=== PATIENT | female | born 1975 | race Caucasian/White ===

== ENCOUNTER 2020-10-26 21:48 | Emergency (ER) | payer SELFPAY ==
[~2020-10-26] VITALS: Ht 172.7 cm; Wt 163.3 kg
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
--- NOTE | 2020-10-26 22:35 | NUR ---
TECH AT BEDSIDE FOR XRAY
[2020-10-26] MEDS ORDERED: TRAMADOL HCL 50 MG TABLET ONE (22:51)
[2020-10-26] MEDS ORDERED: TRAMADOL HCL 50 MG TABLET PO ONE (23:00)
[2020-10-26] MEDS ORDERED: ACET-2605 PO (23:26)
[2020-10-26] MEDS ORDERED: CYCL10TA9 PO (23:26)
--- NOTE | 2020-10-26 23:50 | NUR ---
Patient discharged to home in stable condition. Written and verbal after care instructions given. Patient verbalizes understanding of instruction.
[2020-10-27 00:08] VITALS: BP 159/98
== END 2020-10-27 00:08 | disposition home or self-care (01) ==
LOC: ER 21:55
DX: S16.1XXA Strain of muscle, fascia and tendon at neck level, initial encounter (principal); M25.511 Pain in right shoulder; R07.89 Other chest pain; I10 Essential (primary) hypertension; Z79.899 Other long term (current) drug therapy; V49.49XA Driver injured in collision with other motor vehicles in traffic accident, initial encounter; Y93.89 Activity, other specified; Y92.413 State road as the place of occurrence of the external cause; Y99.8 Other external cause status
CPT/HCPCS: 71045-TC; 73030-TC

== ENCOUNTER 2025-09-02 21:54 | Inpatient (IN) | payer MEDICARE, OTHER ==
[~2025-09-02] VITALS: Ht 165.1 cm; Wt 108.9 kg
[~2025-09-02 21:54] MED LIST: ACET-2605 PO; CYCL10TA24 PO
[2025-09-02] MEDS ORDERED: ACET325C7 PO (22:40)
[2025-09-02] MEDS ORDERED: IPRA3AMP22 IH (22:40)
[2025-09-02] MEDS ORDERED: ALBU0.633 NEB (22:40)
[2025-09-02] MEDS ORDERED: DIPH25TA25 GT (22:40)
[2025-09-02] MEDS ORDERED: AMLO-212 GT (22:40)
[2025-09-02] MEDS ORDERED: DOCU100C36 GT (22:40)
[2025-09-02] MEDS ORDERED: ACET-868 GT (22:40)
[2025-09-02] MEDS ORDERED: ARGI1POW13 GT (22:40)
[2025-09-02] MEDS ORDERED: BISA10SU61 RC (22:40)
[2025-09-02] MEDS ORDERED: ATOR40TA GT (22:40)
[2025-09-02] MEDS ORDERED: CYAN10006 IM (22:40)
[2025-09-02 22:47] LABS: PLATELET COUNT (AUTO) 327 K/uL (150-450); RED CELL DISTRIBUTION WIDTH 20.7 % (11.5-15.0); WHITE BLOOD COUNT (AUTO) 5.4 K/uL (4.3-11.0)
[2025-09-02] MEDS ORDERED: LABE300T80 GT (22:49)
[2025-09-02] MEDS ORDERED: [UNRECOGNIZED DRUG - CODE] PO (22:49)
[2025-09-02] MEDS ORDERED: AMIN30LI2 GT (22:49)
[2025-09-02] MEDS ORDERED: LEVE500S9 GT (22:49)
[2025-09-02] MEDS ORDERED: ESOM40CA GT (22:49)
[2025-09-02 22:51] LABS: INR 1.08 (0.91-1.10)
[2025-09-02 22:52] LABS: ASPARTATE AMINOTRANSFERASE 9 U/L (15-37); CALCIUM, SERUM 8.3 mg/dL (8.5-10.1); CREATININE 1.1 mg/dL (0.6-1.3); RED BLOOD CELL COUNT(AUTO) 1.93 MIL/uL (4.0-5.2); SODIUM SERUM 145 mmol/L (136-145); TOTAL PROTEIN, SERUM 6.8 g/dL (6.4-8.2); UREA NITROGEN, BLOOD 10 mg/dL (7-18)
[2025-09-02 23:35] LABS: OCCULT BLOOD STOOL POSITIVE (NEGATIVE)
[2025-09-03] VITALS (12 sets, daily range): BP systolic 102–142; BP diastolic 63–82; TEMP 97.2–98.6; O2SAT 98–100
[2025-09-03] MEDS ORDERED: CT SWABBABLE VALVE TRANS SET 1 EA INFUS.SET MC ONE (00:01)
[2025-09-03] MEDS ORDERED: IV NS 0.9% 250 ML IV ONE (00:01)
[2025-09-03] MEDS ORDERED: IOHEXOL-300 100 ML VIAL IV ONE (00:01)
[2025-09-03 00:20] LABS: EOSINOPHILS % (MANUAL) 4 % (0-4); LYMPHOCYTES % (MANUAL) 26 % (16-48); MONOCYTES % (MANUAL) 11 % (0-11.0); NEUTROPHILS % (MANUAL) 59 (42-76); PLATELET ESTIMATE ADEQUATE
[2025-09-03] MEDS ORDERED: IV D5/ 0.9% NACL 1,000 ML IV PRN (00:30)
[2025-09-03] MEDS ORDERED: Z GUARD REMEDY 4 OZ OINT TP PRN (00:30)
[2025-09-03] MEDS ORDERED: ONDANSETRON HCL/PF 4 MG/2 ML VIAL IVP PRN (00:30)
[2025-09-03] MEDS ORDERED: PANTOPRAZOLE 80 MG in IV NS 0.9% 500 ML IV PRN (00:30)
[2025-09-03] MEDS ORDERED: MORPHINE SULFATE INJ 2 MG/ML DISP.SYRIN ONE (03:22)
[2025-09-03] MEDS: MORPHINE SULFATE INJ 2 MG/ML DISP.SYRIN IV PRN (03:26)
[2025-09-03] MEDS ORDERED: CHLO473M5 PO (08:37)
[2025-09-03] MEDS ORDERED: NA P133E RC (08:37)
[2025-09-03] MEDS ORDERED: MAGN400O6 GT (08:37)
[2025-09-03] MEDS ORDERED: FOLI0.4T6 GT (08:37)
[2025-09-03] MEDS ORDERED: [UNRECOGNIZED DRUG - CODE] GT (08:37)
[2025-09-03] MEDS ORDERED: CYAN500T15 GT (08:37)
[2025-09-03] MEDS ORDERED: ACET-73 GT (08:37)
[2025-09-03] MEDS ORDERED: COLL30OI TP (08:37)
[2025-09-03] MEDS ORDERED: ESOM40SU GT (08:37)
[2025-09-03] MEDS ORDERED: LACT-96 GT (08:37)
[2025-09-03] MEDS ORDERED: FERR325T24 GT (08:37)
[2025-09-03] MEDS ORDERED: ALBUTEROL FS 2.5 MG/3 ML VIAL.NEB NEB PRN (11:30)
[2025-09-03] MEDS ORDERED: JEVITY 1.5 CAL LIQUID 1,000 ML BOTTLE GT SCH (11:30)
[2025-09-03] MEDS ORDERED: hydrALAZINE HCL IV 20 MG VIAL IV PRN (11:30)
[2025-09-03] MEDS ORDERED: diphenhydrAMINE HCL ELIX 25 MG/10 ML UDC GT PRN (12:00)
[2025-09-03] MEDS: IPRATROPIUM NEB FS 0.5 MG/2.5 ML AMPUL.NEB NEB SCH (13:30)
[2025-09-03] MEDS: ALBUTEROL FS 2.5 MG/3 ML VIAL.NEB NEB SCH (13:30)
[2025-09-03] MEDS: PANTOPRAZOLE 40 MG VIAL IV SCH (16:02)
[2025-09-03] MEDS: LABETALOL HCL (100MG) 100 MG TABLET GT SCH (17:00)
[2025-09-03] MEDS: LEVETIRACETAM SOL (5 ML) 100 MG/ML UDC GT SCH (17:00)
[2025-09-03] MEDS: AMLODIPINE BESYLATE 5 MG TABLET GT SCH (17:00)
[2025-09-03] MEDS: DOCUSATE SODIUM LIQ 100 MG/10 ML UDC PO SCH (17:00)
[2025-09-03] MEDS: CHLORHEXIDINE GLUCONATE 15 ML UDC MM SCH (17:16)
[2025-09-03] MEDS: ATORVASTATIN 40 MG TABLET GT SCH (22:00)
[2025-09-04] VITALS (25 sets, daily range): BP systolic 100–150; BP diastolic 48–88; TEMP 98.1–99; O2SAT 98–100
[2025-09-04 02:15] LABS: PLATELET COUNT (AUTO) 305 K/uL (150-450); RED BLOOD CELL COUNT(AUTO) 2.49 MIL/uL (4.0-5.2); RED CELL DISTRIBUTION WIDTH 20.4 % (11.5-15.0); WHITE BLOOD COUNT (AUTO) 5.2 K/uL (4.3-11.0)
[2025-09-04 02:27] LABS: CALCIUM, SERUM 8.4 mg/dL (8.5-10.1); CREATININE 1.1 mg/dL (0.6-1.3); PHOSPHORUS 3.6 mg/dL (2.5-4.9); SODIUM SERUM 146.0 mmol/L (136-145); UREA NITROGEN, BLOOD 12.0 mg/dL (7-18)
[2025-09-04 03:17] LABS: LYMPHOCYTES % (MANUAL) 29 % (16-48); MONOCYTES % (MANUAL) 9 % (0-11.0); NEUTROPHILS % (MANUAL) 62 (42-76); PLATELET ESTIMATE ADEQUATE
[2025-09-04] MEDS: IV D5/0.45 NACL 1,000 ML IV PRN (07:03)
[2025-09-04] MEDS: FERROUS SULFATE (325 MG) 325 MG/TAB TABLET GT SCH (09:00)
[2025-09-04] MEDS: POLYETHYLENE GLYCOL 3350 17 GM POWD.PACK PO SCH (09:00)
[2025-09-04] MEDS: FOLIC ACID 1 MG TABLET GT SCH (09:00)
[2025-09-04] MEDS: THERAHONEY GEL 1.5 OZ TUBE TP SCH (16:40)
[2025-09-05] VITALS (25 sets, daily range): BP systolic 126–150; BP diastolic 74–98; TEMP 97.9–99.3; O2SAT 97–100
[2025-09-05] MEDS: FUROSEMIDE 20 MG/2 ML VIAL IV PRN (03:11)
[2025-09-05 06:43] LABS: PLATELET COUNT (AUTO) 290 K/uL (150-450); RED BLOOD CELL COUNT(AUTO) 3.14 MIL/uL (4.0-5.2); RED CELL DISTRIBUTION WIDTH 20.5 % (11.5-15.0); WHITE BLOOD COUNT (AUTO) 5.3 K/uL (4.3-11.0)
[2025-09-05 07:10] LABS: CALCIUM, SERUM 8.8 mg/dL (8.5-10.1); CREATININE 1.2 mg/dL (0.6-1.3); SODIUM SERUM 144.0 mmol/L (136-145); UREA NITROGEN, BLOOD 11.0 mg/dL (7-18)
[2025-09-05 11:09] LABS: PREGNANCY TEST URINE QUAL NEGATIVE (NEGATIVE)
[2025-09-05] MEDS: POTASSIUM CL. PREMIX PERIPHER. 50 ML IV SCH (12:30)
[2025-09-05] MEDS: JEVITY 1.2 CAL 1,000 ML BOTTLE GT PRN (14:17)
[2025-09-05] MEDS ORDERED: JEVITY 1.2 CAL 1,000 ML BOTTLE GT PRN (14:30)
[2025-09-05] MEDS: ACETAMINOPHEN 325 MG TABLET PO PRN (21:34)
[2025-09-06] VITALS (13 sets, daily range): BP systolic 131–145; BP diastolic 76–94; TEMP 97.9–98.1; O2SAT 98–100
[2025-09-06 06:37] LABS: PLATELET COUNT (AUTO) 261 K/uL (150-450); RED BLOOD CELL COUNT(AUTO) 3.32 MIL/uL (4.0-5.2); RED CELL DISTRIBUTION WIDTH 20.0 % (11.5-15.0); WHITE BLOOD COUNT (AUTO) 5.5 K/uL (4.3-11.0)
[2025-09-06 06:53] LABS: CALCIUM, SERUM 8.5 mg/dL (8.5-10.1); CREATININE 1.1 mg/dL (0.6-1.3); PHOSPHORUS 3.8 mg/dL (2.5-4.9); SODIUM SERUM 145.0 mmol/L (136-145); UREA NITROGEN, BLOOD 13.0 mg/dL (7-18)
[2025-09-06] MEDS: SOD FERRIC GLUC 125 MG in IV NS 0.9% 100 ML IV STA (10:26)
[2025-09-06 10:50] LABS: IRON, SERUM 9 ug/dl (50-175)
[2025-09-06] MEDS: SOD FERRIC GLUC 125 MG in IV NS 0.9% 100 ML IV SCH (15:01)
== END 2025-09-06 19:13 | DRG 663 ==
LOC: ER 21:57 → TELE 09-03 07:14
PROVIDERS: ADMIT Internal Medicine; ATTEND Internal Medicine
PROC: 30233N1 Transfusion of Nonautologous Red Blood Cells into Peripheral Vein, Percutaneous Approach (ICD-10-PCS; 2025-09-03)
PROC: 0DB98ZX Excision of Duodenum, Via Natural or Artificial Opening Endoscopic, Diagnostic (ICD-10-PCS; principal; 2025-09-05 11:00)
DX: D62 Acute posthemorrhagic anemia (principal); I71.02 Dissection of abdominal aorta; L89.154 Pressure ulcer of sacral region, stage 4; R53.2 Functional quadriplegia; I31.39 Other pericardial effusion (noninflammatory); M46.28 Osteomyelitis of vertebra, sacral and sacrococcygeal region; E87.0 Hyperosmolality and hypernatremia; K92.2 Gastrointestinal hemorrhage, unspecified; J96.10 Chronic respiratory failure, unspecified whether with hypoxia or hypercapnia; Z93.0 Tracheostomy status; D63.8 Anemia in other chronic diseases classified elsewhere; E66.9 Obesity, unspecified; I12.9 Hypertensive chronic kidney disease with stage 1 through stage 4 chronic kidney disease, or unspecified chronic kidney disease; G40.909 Epilepsy, unspecified, not intractable, without status epilepticus; N18.30 Chronic kidney disease, stage 3 unspecified; E78.5 Hyperlipidemia, unspecified; K29.70 Gastritis, unspecified, without bleeding; R13.10 Dysphagia, unspecified; K59.00 Constipation, unspecified; Z95.820 Peripheral vascular angioplasty status with implants and grafts; R19.5 Other fecal abnormalities; K56.41 Fecal impaction
CPT/HCPCS: 31720; 36415; 71045-TC; 80048-TC; 80076-TC; 82272-TC; 82728-TC; 83540-TC; 83735-TC; 84100-TC; 84484-TC; 84703-TC; 85025-TC; 85027-TC; 85730-TC; 86850; 86850-TC; 86870; 86880; 86900; 86901; 86905; 86906; 88305-TC; 93307-TC; 94640-TC; 94760-TC; 94761-TC; 94799-TC; A4223; A9560; G0378; J1938; J1953; J2270; J2470; J2704; J2916; J3480; J3490; J7030; J7040; J7050; P9016; Q9967